=== PATIENT | male | born 1950 | race Caucasian/White ===

== ENCOUNTER 2017-02-08 09:39 | Emergency (ER) | payer OTHER ==
[~2017-02-08] VITALS: Ht 172.7 cm; Wt 45.6 kg
[2017-02-08 10:50] LABS: HEMATOCRIT 32.1 % (38.0-50.0); MCH 19.5 PG (29.0-34.0); MCV 69.6 FL (86-99); PLATELET COUNT 272 K/uL (156-360); RBC DIS.WIDTH-CV 22.4 % (11.8-14.6); RBC DIS.WIDTH-SD 54.3 % (39-53); RED BLOOD COUNT 4.61 M/uL (4.00-5.50); WHITE BLOOD COUNT 14.1 K/uL (4.1-10.2)
[2017-02-08 10:59] LABS: CHLORIDE 108 mEq/L (99-109); POTASSIUM 4.2 mEq/L (3.7-5.4); SODIUM 143 mEq/L (136-147)
[2017-02-08 11:01] LABS: GLUCOSE 131 mg/dL (70-99)
[2017-02-08 11:02] LABS: ANION GAP 15 MEQ/L (2-14)
[2017-02-08 11:04] LABS: GFR ESTIMATE (CALCULATED) > 59 mL/min/; TROP-I INTERPRETATION NEGATIVE; TROPONIN-I < 0.01 ng/mL (0.0-0.30)
[2017-02-08 11:05] LABS: UREA NITROGEN (BUN) 15 mg/dL (9-23)
[2017-02-08 13:16] LABS: TOTAL BILIRUBIN 0.6 mg/dL (0.0-1.0)
[2017-02-08 13:17] LABS: ALKALINE PHOSPHATASE 96 IU/L (3-129)
[2017-02-08 13:19] LABS: DIRECT BILIRUBIN 0.3 mg/dL (0.0-0.3)
[2017-02-08 13:20] LABS: LIPASE 11 U/L (1.0-51.0)
[2017-02-08] MEDS ORDERED: ZANTAC150 MG PO ×2 (15:37→16:20)
[2017-02-08 16:36] VITALS: BP 121/72
== END 2017-02-08 16:26 | disposition home or self-care (01) ==
LOC: EME 09:39
DX: K29.70 Gastritis, unspecified, without bleeding (principal); I72.3 Aneurysm of iliac artery; R13.10 Dysphagia, unspecified; F17.200 Nicotine dependence, unspecified, uncomplicated
CPT/HCPCS: 71020; 74177; 80048; 80076; 83690; 84484; 85027; 93005; 99281; 99284; J7040